=== PATIENT | female | born 1970 | race Two or more races ===

== ENCOUNTER 2017-09-17 13:13 | Outpatient (CLI) | payer OTHER | END 2017-09-17 13:20 | disposition home or self-care (01) | LOC: SONOGRAMA 13:13 | DX: R10.2 Pelvic and perineal pain (principal) ==

== ENCOUNTER 2018-06-11 13:58 | Outpatient (CLI) | payer OTHER | END 2018-06-11 14:10 | disposition home or self-care (01) | LOC: RAD 501 13:58 | DX: N92.0 Excessive and frequent menstruation with regular cycle (principal); Z01.818 Encounter for other preprocedural examination; D64.89 Other specified anemias; N39.0 Urinary tract infection, site not specified; R79.89 Other specified abnormal findings of blood chemistry ==